=== PATIENT | female | born 2000 | race Caucasian/White ===

== ENCOUNTER 2018-07-06 13:18 | Outpatient (REF) | payer BC, SELFPAY ==
[2018-07-09 14:09] LABS: Chlamydia Result Negative; GC Result Negative; Specimen Description URINE
== END 2018-07-06 13:38 ==
LOC: LBN 13:18
PROVIDERS: PCP Pediatrics; Visit Provider Nurse Practitioner Women's Health
DX: Z11.3 Encounter for screening for infections with a predominantly sexual mode of transmission (principal)
CPT/HCPCS: 87491; 87591

== ENCOUNTER 2019-06-06 07:50 | Outpatient (CLI) | payer BC, SELFPAY ==
[2019-06-06 13:09] LABS: TSH (W/Ref FT4) 1.36 uIU/mL (0.36-3.74)
== END 2019-06-06 08:10 ==
PROVIDERS: PCP Pediatrics; Visit Provider Pediatrics
DX: R53.83 Other fatigue (principal)
CPT/HCPCS: 36415; 84443

== ENCOUNTER 2021-07-28 17:12 | Outpatient (REF) | payer BC, SELFPAY ==
[2021-07-30 15:43] LABS: Chlamydia Result Negative (Negative); GC Result Negative (Negative)
== END 2021-07-28 17:13 | disposition home or self-care (01) ==
LOC: LBN 17:12
PROVIDERS: PCP Nurse Practitioner Family; Visit Provider Nurse Practitioner Women's Health
DX: Z11.3 Encounter for screening for infections with a predominantly sexual mode of transmission (principal)
CPT/HCPCS: 87491; 87591

== ENCOUNTER 2021-08-03 10:37 | Outpatient (REF) | payer BC, SELFPAY ==
--- NOTE | 2021-08-03 10:15 | PAPFT_PTH ---
PATIENT: Raven Perez LOC: [facility] U#:[id number] AGE/SX: 21/F ROOM: RE08/03/[address]: Ludivina Cai NP : 2000 BED: DIS: 08/03/2021 SPEC #: [id number] RECD: 08/03/21 12:43 STATUS: NADER REVibha #: [id number] CHANTELL: 08/03/21 10:[address]: Ludivina Cai NP DEPT: [facility] Cytology RECD BY: Brianna King ENTERED: 08/03/21 12:43 SP TYPE: PAPFT OT DR: Ar Johnston NP Tissues: 1 - CX/ENDOCX FOR PAP SMEARS Procedures: PAP THIN PREP/[facility] Screening Comments: [id number]
== END 2021-08-03 10:38 | disposition home or self-care (01) ==
LOC: LBN 10:37
PROVIDERS: PCP Nurse Practitioner Family; Visit Provider Nurse Practitioner Women's Health
DX: Z12.4 Encounter for screening for malignant neoplasm of cervix (principal)
CPT/HCPCS: 88142

== ENCOUNTER 2023-01-03 02:00 | Outpatient (CLI) | payer BC, SELFPAY ==
[2023-01-03 10:56] LABS: Calculated LDL 93 mg/dL (<100); Cholesterol 158 mg/dL (<200); HDL Cholesterol 45 mg/dL (40-60); Triglyceride 100 mg/dL (<150)
== END 2023-01-03 02:01 | disposition home or self-care (01) ==
PROVIDERS: PCP Nurse Practitioner Family; Visit Provider Nurse Practitioner Family
DX: Z13.1 Encounter for screening for diabetes mellitus (principal); Z13.220 Encounter for screening for lipoid disorders
CPT/HCPCS: 36415; 80061; 83036

== ENCOUNTER 2024-09-14 13:07 | Outpatient (CLI) | payer OTHER, SELFPAY ==
--- NOTE | 2024-09-14 14:14 | DI.RAD_ITS ---
Exam(s) XR ANKLE RT COMPLETE EXAM: XR ANKLE RT COMPLETE CLINICAL HISTORY: ankle injury r/o fracture.. TECHNIQUE: 2D digital imaging was performed of the right ankle. Three images were obtained. AP, la teral and oblique views were obtained. COMPARISON: CR RIGHT ANKLE COMPLETE from 09/28/2010 FINDINGS: BONES: No acute fracture is present. No bony destructive lesion is seen. JOINTS: The ankle mortise is normally aligned. SOFT TISSUE: There is soft tissue swelling about the ankle. IMPRESSION: No acute fracture or dislocation. DATA REPOSITORY: RADIATION DOSE DELIVERED:
--- NOTE | 2024-09-14 15:18 | DI.VRAD_ITS ---
PROCEDURE INFORMATION: Exam: XR Right Ankle Exam date and time: 09/14/2024 2:12 PM Age: 24 years old Clinical indication: Pain; Ankle; Right; Fall TECHNIQUE: Imaging protocol: Radiologic exam of the right ankle. Views: 3 or more views. COMPARISON: No relevant prior studies available. FINDINGS: Bones/joints: Bone density is appropriate. Bony alignment is anatomic. No evidence for fracture. Possible joint effusion. Soft tissues: There is some soft tissue swelling at the lateral malleolar level. IMPRESSION: Lateral malleolar soft tissue swelling. Possible joint effusion. No evidence for fracture. Dictated and Authenticated by: Kay Allen MD. Orderin Bipin Amaral MD
== END 2024-09-14 13:27 ==
PROVIDERS: PCP Nurse Practitioner Family; Visit Provider Physician Assistant
DX: S93.401A Sprain of unspecified ligament of right ankle, initial encounter (principal); X58.XXXA Exposure to other specified factors, initial encounter
CPT/HCPCS: 73610

== ENCOUNTER 2025-01-16 14:31 | Outpatient (REF) | payer OTHER, SELFPAY ==
--- NOTE | 2025-01-16 14:45 | PAPFT_PTH ---
PATIENT: Raven Perez LOC: [facility] U#:[id number] AGE/SX: 24/F ROOM: RE01/16/[address]: Anastacia Funk MD : 2000 BED: DIS: 01/16/2025 SPEC #: [id number] RECD: 01/16/25 17:55 STATUS: NADER REVibha #: [id number] CHANTELL: 01/16/25 14:[address]: Anastacia Funk DEPT: [facility] Cytology RECD BY: Brianna King ENTERED: 01/16/25 17:55 SP TYPE: PAPFT XIOMY DR: Ar Johnston, HELLEN Tissues: 1 - CX/ENDOCX FOR PAP SMEARS Procedures: PAP THIN PREP/[facility] Screening Comments: [id number]
== END 2025-01-16 14:32 | disposition home or self-care (01) ==
LOC: LBN 14:31
PROVIDERS: PCP Nurse Practitioner Family; Visit Provider Obstetrics & Gynecology
DX: Z12.4 Encounter for screening for malignant neoplasm of cervix (principal)
CPT/HCPCS: 88142

== ENCOUNTER 2025-03-20 04:13 | Outpatient (CLI) | payer OTHER, SELFPAY ==
[2025-03-20 11:53] LABS: Calculated LDL 103 mg/dL (<100); Cholesterol 165 mg/dL (<200); HDL Cholesterol 48 mg/dL (>or=50); Triglyceride 72 mg/dL (<150)
[2025-03-20 12:04] LABS: Hemoglobin A1C 4.8 % (<5.7)
== END 2025-03-20 04:14 | disposition home or self-care (01) ==
LOC: LBO 04:16
PROVIDERS: PCP Nurse Practitioner Family; Visit Provider Nurse Practitioner Family
DX: Z13.220 Encounter for screening for lipoid disorders (principal); Z13.1 Encounter for screening for diabetes mellitus
CPT/HCPCS: 36415; 80061; 83036